=== PATIENT | male | born 1995 | race African-American/Black ===

== ENCOUNTER 2017-08-06 23:31 | Emergency (ER) | payer OTHER ==
[~2017-08-06] VITALS: Ht 175.3 cm; Wt 75.0 kg
[2017-08-06 23:33] VITALS: BP 152/101; PULSE 101; RESP 16; TEMP 98.7; O2SAT 100
[2017-08-07 00:24] VITALS: BP 116/75; PULSE 65; RESP 18; O2SAT 100
--- NOTE | 2017-08-07 00:26 | RADRPT ---
EXAM DATE/TIME: 08/07/2017 00:12 [place] COMPARISON: No previous studies available for comparison. INDICATIONS : Chest pain. MEDICAL HISTORY : None. SURGICAL HISTORY : None. ENCOUNTER: Initial ACUITY: 1 day PAIN SCORE: 3/10 LOCATION: Right chest FINDINGS: PA and lateral views of the chest demonstrate the lungs to be symmetrically aerated without evidence of mass, infiltrate or effusion. The cardiomediastinal contours are unremarkable. Osseous structure s are intact. CONCLUSION: 1. No acute cardiopulmonary findings. Jose Seay MD on August 07, 2017 at 0:23 Board Certified Radiologist. This report was verified electronically.
--- NOTE | 2017-08-07 01:02 | PD ---
HPI Chief Complaint: Pain: Acute or Chronic Time Seen by Provider: 23:44 Travel History International Travel<30 days: No Contact w/Intl Traveler<30days: No Traveled to known affect area: No History of Present Illness HPI Patient as a 22-year-old male presents emergency department for evaluation of right upper extremity pain. Patient states it feels somewhat tight in his right biceps, this started radiating up into his right chest this afternoon. Patient's concerned because his friend had a sudden collapse in cardiac a few days ago. He has no family history, no heart history, no high blood pressure no high cholesterol as a non-smoker does not use any drugs including cocaine. States his symptoms are minimal, contacts as above, associated sinus symptoms as above, duration his 12 hours. PFSH Past Medical History Immunizations Current: Yes Tetanus Vaccination: Unknown Influenza Vaccination: No Social History Alcohol Use: No Tobacco Use: Yes Substance Use: No Allergies-Medications (Allergen,Severity, Reaction): Coded Allergies: No Known Allergies (Unverified , 08/06/17) Review of Systems Except as stated in HPI: all other systems reviewed are Neg Physical Exam Narrative GENERAL: Well-developed well-nourished, quite pleasant no obvious distress, appears quite comfortable in no pain. SKIN: Focused skin assessment warm/dry. HEAD: Atraumatic. Normocephalic. EYES: Pupils equal and round. No scleral icterus. No injection or drainage. ENT: No nasal bleeding or discharge. Mucous membranes pink and moist. NECK: Trachea midline. No JVD. CARDIOVASCULAR: Regular rate and rhythm. No murmur appreciated. 2+ bilateral equal pulses in all 4 extremities. RESPIRATORY: No accessory muscle use. Clear to auscultation. Breath sounds equal bilaterally. GASTROINTESTINAL: Abdomen soft, non-tender, nondistended. Hepatic and splenic margins not palpable. MUSCULOSKELETAL: No obvious deformities. No clubbing. No cyanosis. No edema. Extremities atraumatic, pulse motor an sensory intact distally in all 4 extremities. NEUROLOGICAL: Awake and alert. No obvious cranial nerve deficits. Motor grossly within normal limits. Normal speech. PSYCHIATRIC: Appropriate mood and affect; insight and judgment normal. Data Data Last Documented VS Vital Signs Date Time Temp Pulse Resp B/P (MAP) Pulse Ox O2 Delivery O2 Flow Rate FiO2 08/07/17 01:12 08/07/17 00:24 65 18 100 Room Air 08/06/17 23:33 98.7 Orders Orders Electrocardiogram (08/07/17 ) Chest, Pa & Lat (08/07/17 ) Ed Discharge Order (08/07/17 01:02) [facility] Medical Decision Making Medical Screen Exam Complete: Yes Emergency Medical Condition: Yes Differential Diagnosis ACS unlikely, AK unlikely, chest wall pain, musculoskeletal pain. Narrative Course Patient roomed in the emergency department, EKG in chest x-ray are reassuring. He appears comfortable on is not having any pain currently. No indication further workup at this time. He patient as reassured. Recommend follow-up with a primary care physician or the [facility] for further workup in the checkup. He has stable for discharge. Diagnosis Primary Impression: Right arm pain Referrals: [facility] [address] Patient Instructions: Arm Pain (ED), General Instructions Disposition: 01 DISCHARGE HOME Condition: Stable Darius Haile MD Aug 07, 2017 01:02
--- NOTE | 2017-08-07 13:16 | EKG ---
Date Performed: 08/07/2017 Time Performed: 00:29:36 PTAGE: 22 years EKG: Sinus rhythm NONSPECIFIC T-WAVE ABNORMALITY BORDERLINE ECG NO PREVIOUS TRACING DOCTOR: Tashi Thompson Interpretating Date/Time 08/07/2017 13:15:50
== END 2017-08-07 01:45 | disposition home or self-care (01) ==
LOC: NEPD 23:31
DX: M79.601 Pain in right arm (principal); R94.31 Abnormal electrocardiogram [ECG] [EKG]; Z72.0 Tobacco use
CPT/HCPCS: 71046; 93005; 99284